=== PATIENT | male | born 1980 | race Two or more races ===

== ENCOUNTER 2017-12-10 21:15 | Emergency (ER) | payer SELFPAY ==
[~2017-12-10] VITALS: Ht 167.6 cm; Wt 65.8 kg
[2017-12-10 22:39] VITALS: BP 116/77
[2017-12-11] MEDS ORDERED: NAPR-514 PO (01:31)
--- NOTE | 2017-12-11 01:32 | PHYS DOC ---
Past Medical History Past Medical History: No Pertinent History Past Surgical History: No Surgical History Alcohol Use: None Drug Use: None Adult General Chief Complaint Chief Complaint: LOWER EXT PAIN HPI HPI Patient is a 37 year old male who presents to the ER with complaints of left foot pain and pain behind left knee for the last 8 days. Pt states that his left great toe feels like is is . 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 He states that during his travel his foot feel asleep and it has not been the same since. Pt denies any shortness of breath, or known injury. He has been taking OTC Aleve for relief of his symptoms. Currently, he reports the pain as a 6 out of 10 on the pain scale. The [employer] language line was used to interpret for this Samoan speaking patient. Review of Systems Review of Systems Constitutional: Denies fever or chills [] Respiratory: Denies cough or shortness of breath [] Cardiovascular: Denies chest pain Musculoskeletal: Denies back pain, reports pain in left foot and behind the left knee x8 days- denies any known injury Integument: Denies rash or skin lesions [] Neurologic: Denies headache, focal weakness; reports left great toe feels All other systems were reviewed and found to be within normal limits, except as documented in this note. Physical Exam Physical Exam Constitutional: Well developed, well nourished, no acute distress, non-toxic appearance. [] HENT: Normocephalic, atraumatic, bilateral external ears normal, nose normal. [] Skin: Warm, dry, no erythema, no rash. [] Extremities: No cyanosis, no clubbing, ROM intact, no edema; L medial tempering kiln tender to palpation. L calve tender to palpation, palpable weak posterior tibial and pedal pulse LLE, doppler strong posterior tibial and pedal pulse LLE [] Neurologic: Alert and oriented X 3, normal motor function, normal sensory function, no focal deficits noted. [] Psychologic: Affect normal, judgement normal, mood normal. [] Current Patient Data Vital Signs Vital Signs Date Time Temp Pulse Resp B/P (MAP) Pulse Ox O2 Delivery O2 Flow Rate FiO2 12/10/17 22:39 97.7 99 18 116/77 (90) 98 Room Air 97.7 EKG EKG [] Radiology/Procedures Radiology/Procedures [] Course & Med Decision Making Course & Med Decision Making Pertinent Labs and Imaging studies reviewed. (See chart for details) L leg paresthesia, ultrasound negative for DVT. Prescription written for naproxen. Stop taking Aleve. Follow up with your primary doctor. Pt verbalized an understanding of prescription, home care, follow up and return to ED instructions. [] Dragon Disclaimer Dragon Disclaimer This electronic medical record was generated, in whole or in part, using a voice recognition dictation system. Departure Departure Impression: Primary Impression: Paresthesia and pain of left extremity Disposition: HOME, SELF-CARE Condition: STABLE Referrals: NO PCP (PCP) Patient Instructions: Paresthesia, [id number] Additional Instructions: Fill prescription and take as directed. Do no take ALEVE while taking this medication. Follow up with your doctor for further evaluation. Return to the ER if your symptoms worsen. Scripts Naproxen (NAPROXEN) 500 Mg Tablet 1 TAB PO BID for 10 Days, #20 TAB 0 Refills Prov: KATHERIN ARIZMENDI APRN 12/11/17 KATHERIN ARIZMENDI APRN Dec 11, 2017 01:31
--- NOTE | 2017-12-11 02:03 | RAD ---
Examination: Left Lower Extremity Venous Doppler Ultrasound History: Left lower leg calf pain Comparison: None Procedure: To scale, color flow 2D and spectal waveform analysis images are obtained with and without compression in the area of the common femoral vein, superficial femoral vein - femoral vein junction, main femoral vein (superficial femoral vein) and popliteal vein. Veins of the proximal calf are also imaged. Findings: There is normal duplex flow, color flow and compressibility of all visualized vein segments. No evidence of deep venous thrombus is present. Impression: No evidence of DVT in the visualized left lower extremity venous system. Electronically signed by: Toño Rice MD (12/11/2017 2:00 AM) [facility]
== END 2017-12-11 01:40 | disposition home or self-care (01) ==
LOC: ER 21:15
DX: M25.572 Pain in left ankle and joints of left foot (principal); R20.0 Anesthesia of skin
CPT/HCPCS: 93971; 99284